=== PATIENT | female | born 1990 | race African-American/Black ===

== ENCOUNTER 2021-12-20 20:10 | Emergency (ER) | payer BC ==
[2021-12-20] MEDS ORDERED: Ondansetron 4 MG/2 ML SDV IVPUSH ONE (20:15)
[2021-12-20] MEDS ORDERED: Sodium Chloride 0.9% 2.5 ML Syringe FLUSH PRN (20:15)
[2021-12-20] MEDS ORDERED: Sodium Chloride 0.9% 10 ML Syringe FLUSH PRN (20:15)
[2021-12-20] MEDS ORDERED: Naloxone 0.4 MG/ML SDV IVPUSH ONE (20:15)
[2021-12-20] MEDS ORDERED: Sodium Chloride 0.9% 1,000 ML IV ONE (20:15)
[2021-12-20 20:49] LABS: ACETAMINOPHEN <2.0 ug/mL; BLOOD UREA NITROGEN,BUN 16 mg/dL (7.0-18.0); CARBON DIOXIDE,CO2 22.6 mmol/L (21.0-32.0); CHLORIDE,CL 101 mmol/L (98-107); GLUCOSE RANDOM 98 mg/dL (74-106); POTASSIUM,K 3.7 mmol/L (3.5-5.1); SODIUM,NA 135 mmol/L (136-145)
[2021-12-20 22:01] LABS: CORONAVIRUS COVID-19 NAA NEGATIVE (NEGATIVE); INFLUENZA A NAA NEGATIVE (NEGATIVE); INFLUENZA B NAA NEGATIVE (NEGATIVE)
== END 2021-12-20 23:20 | disposition home or self-care (01) ==
LOC: EDBD 20:10 → MW.ED 20:10
DX: T40.2X1A Poisoning by other opioids, accidental (unintentional), initial encounter (principal); J96.90 Respiratory failure, unspecified, unspecified whether with hypoxia or hypercapnia; Z20.822 Contact with and (suspected) exposure to COVID-19
CPT/HCPCS: 0240U; 36415; 80053; 80143; 80179; 80307; 85025; 93005; 96374; 96375; 99285; J2310; J2405; J7030; 93010; J3490